=== PATIENT | male | born 1990 | race Caucasian/White ===

== ENCOUNTER 2016-12-15 15:32 | Emergency (ER) | payer OTHER ==
[2016-12-15 15:37] VITALS: BP 139/74; PULSE 77; RESP 18; TEMP 98.7
--- NOTE | 2016-12-15 15:55 | ED ---
General Adult HPI - General Chief complaint: Extremity Injury, Lower Stated complaint: IHS/Ankle Injury Time Seen by Provider: 12/15/16 15:39 Source: patient, RN notes reviewed Mode of arrival: wheelchair Limitations: no limitations - History of Present Illness Initial comments: Patient 26-year-old male who presents emergency room today with a chief complaint of injury to the right ankle that occurred at work just approximate hour ago. He states that he stepped back onto a piece of angle iron causing him to roll his right ankle. He isn't pain locally aspect. Patient denies any other complaints or symptoms. Patient denies any recent fever, chills, shortness of breath, chest pain, back pain, abdominal pain, nausea or vomiting, dysuria or hematuria, constipation or diarrhea, headaches or visual changes, or any other complaints. - Related Data Previous Rx's Medication Instructions Recorded Ibuprofen [Motrin] 600 mg PO Q6HR PRN #20 day 12/15/16 Allergies Allergy/AdvReac Type Severity Reaction Status Date / Time bacitracin Allergy Rash/Hives Verified 12/15/16 15:49 [From Neosporin ([id number])] neomycin Allergy Rash/Hives Verified 12/15/16 15:49 [From Neosporin ([id number])] polymyxin B Allergy Rash/Hives Verified 12/15/16 15:49 [From Neosporin ([id number])] Review of Systems ROS Statement: Those systems with pertinent positive or pertinent negative responses have been documented in the HPI. ROS Other: All systems not noted in ROS Statement are negative. Past Medical History Past Medical History: No Reported History History of Any Multi-Drug Resistant Organisms: None Reported Past Surgical History: No Surgical Hx Reported Past Psychological History: No Psychological Hx Reported Smoking Status: Never smoker Past Alcohol Use History: None Reported Past Drug Use History: None Reported General Exam - General Exam Comments Initial Comments: General: The patient is awake and alert, in no distress, and does not appear acutely ill. Neck: The neck is supple, there is no tenderness or JVD. Cardiovascular: There is a regular rate and rhythm. No murmur, rub or gallop is appreciated. Respiratory: Lungs are clear to auscultation, respirations are non-labored, breath sounds are equal. No wheezes, stridor, rales, or rhonchi. Musculoskeletal: does have mild swelling to the lateral aspect of the right ankle. Shows good range of motion both plantar and dorsiflexion. Patient sensations are intact with pulses equal bilaterally 2+. Strength 4/5 due to pain. Patient does have tenderness over the lateral malleolus and in the ATFL area. Neurological: A&O x 3. CN II-XII intact, There are no obvious motor or sensory deficits. Coordination appears grossly intact. Speech is normal. Skin: Skin is warm and dry and no rashes or lesions are noted. Psychiatric: Normal mood and affect. Limitations: no limitations Course Vital Signs 12/15/16 15:35 Temperature 98.7 F Pulse Rate 77 Respiratory 18 Rate Blood Pressure 139/74 O2 Sat by Pulse 97 Oximetry Medical Decision Making - Medical Decision Making x-ray reviewed and is negative for any acute fracture dislocation. Patient advised most likely ankle sprain with to follow-up in 7-10 days if symptoms are not improving. Advised patient to ice elevate the affected area. Advised to use ibuprofen for pain. Advised return for any other concerns. Disposition Clinical Impression: Ankle sprain Disposition: HOME SELF-CARE Condition: Good Instructions: Ankle Sprain (ED) Additional Instructions: Please continue to ice elevate the affected area at least 4 times a day for 20 minutes at a time. Please use ibuprofen for pain as needed. Please follow-up in 7-10 days for further evaluation and possible repeat x-rays this pain is not improving. Please return to emergency room for any other concerns. Prescriptions: Ibuprofen [Motrin] 600 mg PO Q6HR PRN #20 day PRN Reason: Pain Referrals: None,Stated [Primary Care Provider] - 1-2 days Derrek Arevalo MD [Medical Doctor] - 1-2 days Time of Disposition: 16:32
--- NOTE | 2016-12-15 16:14 | XR ---
EXAMINATION TYPE: XR ankle complete LT DATE OF EXAM: 12/15/2016 COMPARISON: NONE HISTORY: Pain TECHNIQUE: 3 views FINDINGS: Ankle mortise is anatomic. I see no fracture nor dislocation. There is mild soft tissue swe lling over the lateral malleolus. IMPRESSION: Mild soft tissue swelling. No fracture.
== END 2016-12-15 16:38 | disposition home or self-care (01) ==
LOC: EC 15:32
DX: S93.401A Sprain of unspecified ligament of right ankle, initial encounter (principal); Z88.1 Allergy status to other antibiotic agents; W22.8XXA Striking against or struck by other objects, initial encounter; Y92.69 Other specified industrial and construction area as the place of occurrence of the external cause; Y99.0 Civilian activity done for income or pay
CPT/HCPCS: 99283

== ENCOUNTER → 2016-12-23 | Outpatient (CLI) | payer OTHER ==
--- NOTE | 2016-12-23 16:09 | XR ---
EXAMINATION TYPE: XR ankle complete RT DATE OF EXAM: 12/23/2016 COMPARISON: NONE HISTORY: Pain FINDINGS: Three views of the ankle demonstrate the ankle mortise to be intact and symmetric. The joint spaces are preserved. The osseous structures are intact. IMPRESSION: 1. No definite acute fracture or dislocation, if symptoms persist follow-up study in 7 to 10 days wou ld be suggested.
== END | disposition home or self-care (01) ==
LOC: RADXRMAIN 15:51
PROVIDERS: ATTEND Emergency Medicine
DX: S93.401D Sprain of unspecified ligament of right ankle, subsequent encounter (principal)

== ENCOUNTER → 2017-03-06 | Outpatient (CLI) | payer OTHER ==
--- NOTE | 2017-03-07 04:24 | MR ---
EXAMINATION TYPE: MR ankle RT wo con DATE OF EXAM: 03/06/2017 COMPARISON: NONE HISTORY: Rt ankle pain, injury 2 mos ago Standard multiplanar, multisequence MRI departmental protocol Multiplanar, multisequence images of the right ankle were acquired. FINDINGS: Achilles tendon is intact. Plantar fascia is intact. There is mild ankle joint effusion. Th e medial and lateral flexor tendons of the ankle appear intact. The collateral ligaments appear intac t. I see no bony destructive process. There is no evidence of a fracture. Joint spaces are fairly nor mal. IMPRESSION: Mild ankle joint effusion. No evidence of ligament or tendon tear. No fracture seen.
== END | disposition home or self-care (01) ==
LOC: RADMRIMAIN 20:57
PROVIDERS: ATTEND Emergency Medicine
DX: M25.471 Effusion, right ankle (principal); S40.011D Contusion of right shoulder, subsequent encounter

== ENCOUNTER → 2017-12-09 | Outpatient (CLI) | payer OTHER ==
--- NOTE | 2017-12-09 17:15 | XR ---
EXAMINATION TYPE: XR ankle complete RT DATE OF EXAM: 12/09/2017 COMPARISON: NONE HISTORY: Pain along lateral side of ankle TECHNIQUE: Three-view right ankle FINDINGS: There is soft tissue swelling over the lateral malleolus. Ankle mortise is intact. No acute displaced fractures are evident. Follow-up study can be performed 7-10 days from acute trauma for continued pain. IMPRESSION: 1. Soft tissue swelling lateral malleolus.
--- NOTE | 2017-12-09 17:16 | XR ---
EXAMINATION TYPE: XR foot complete RT DATE OF EXAM: 12/09/2017 COMPARISON: NONE HISTORY: Pain lateral side TECHNIQUE: Three-view right foot FINDINGS: No acute displaced fractures are evident. The calcaneus appears normal. No acute fractures or dislocations within the foot are evident. The soft tissues appear normal. Joint spaces are preserv ed. Follow-up studies can be performed 7-10 days from acute trauma for continued pain. IMPRESSION: 1. Normal three-view right foot.
== END | disposition home or self-care (01) ==
LOC: RADXRMAIN 16:34
PROVIDERS: ATTEND Emergency Medicine
DX: S93.401A Sprain of unspecified ligament of right ankle, initial encounter (principal); S93.601A Unspecified sprain of right foot, initial encounter

== ENCOUNTER → 2017-12-16 | Outpatient (CLI) | payer OTHER ==
--- NOTE | 2017-12-16 10:15 | XR ---
EXAMINATION TYPE: XR ankle complete RT DATE OF EXAM: 12/16/2017 COMPARISON: NONE HISTORY: Ankle sprain from twisting injury FINDINGS: Three views of the ankle demonstrate the ankle mortise to be intact and symmetric. The joint spaces are preserved. The osseous structures are intact. Soft tissue edema noted bilaterally. IMPRESSION: 1. No definite acute fracture or dislocation. There is persistent soft tissue edema with no diagnosti c evidence of fracture. If there is concern for ligamentous or tendinous injury correlate with MRI.
== END | disposition home or self-care (01) ==
LOC: RADXRMAIN 09:52
PROVIDERS: ATTEND Emergency Medicine
DX: R60.0 Localized edema (principal)